=== PATIENT | male | born 1970 | race Caucasian/White ===

== ENCOUNTER 2025-07-02 16:40 | Emergency (ER) | payer SELFPAY ==
[2025-07-02 16:56] VITALS: BP 152/81; PULSE 81; TEMP 36.6; O2SAT 99; BMI 26.5
--- NOTE | 2025-07-02 18:12 | XR_ITS ---
[facility] [place] [id number] Patient Name: DIPESH CORDERO MRN: [id number] date: 1970 Sex: M Assigned Patient Location: ED.MAIN Current Patient Location: ED.MAIN Accession/Order Number: [id number] Exam Date: 07/02/2025 18:30 Report Date: 07/02/2025 19:04 At the request of: DANELLE COLON Procedure: XR lumbar spine 2-3V XR lumbar spine 2-3V 07/02/2025 6:32 PM SIGNS AND SYMPTOMS: ^Lumbar radiculopathy, Low back pain PROTOCOLS: Frontal and lateral radiographs of the lumbar spine COMPARISON: None FINDINGS: The alignment, development and bony structures are normal. There is no fracture or destructive lesion. There is minimal disc height loss with anterior osteophyte formation at L3-L4. There is mild disc height loss at L5-S1. The sacrum and sacroiliac joints are normal. There is a stone in the gallbladder within the right upper quadrant. XR/XR lumbar spine 2-3V IMPRESSION: No fracture or subluxation. Mild degenerative changes are noted in the lumbar spine, greatest at L3-L4. Impression dictated by: Henrik Kulkarni M.D. 07/02/2025 7:04 PM Dictation Location: [place] [address] Electronically authenticated by: [id number] Y Date: 07/02/2025 19:04
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
--- OUTSIDE RECORDS SUMMARY | 2025-07-02 18:12 | XMS_ITS | Clinical Summary ---
Author Organization [facility] Address [address] [facility] [address], [address] [place] [address] Care Team Providers Care Supervisor Correspondence Section Name Role Phone Shelby Dunn APRN, NP Primary Care Provide r Allergies No known active allergies Medications MedicationSigDispense QuantityRefillsLast FilledStart DateEnd DateStatus traMADol (ULTRAM) 50 MG tablet Take 50 mg by mouth every 8 hours as needed for Pain06/12/2025Discontinued (CLEANUP NO RX MSG) predniSONE (DELTASONE) 20 MG tablet Indications:Acute exacerbation of chronic low back pain,Back muscle spasmTake 2 tablets by mouth daily for 5 days 10 tablet Expired cyclobenzaprine (FLEXERIL) 5 MG tablet Indications:Acute exacerbation of chronic low back pain,Back muscle spasmTake 1 tablet by mouth 3 times daily as needed for Muscle spasms 30 tablet Expired Active Problems Patient Care Coordination No te Formatting of this note migh t be different from the original. [facility]: Referred by Shelby Chew CNP ext [phone] Patrick: [phone] Dx: Neck / Back Pain ProblemNoted DateDiagnosed DateChronic low back pain Encounters DateTypeDepartmentCare SfjeLasziawkern54/28/2025 4:50 PM ESTOffice Visit [facility] [address] [facility] [address] [place] [address] Renee Mehta APRN - KALE Acute exacerbation of chronic low back pain (Primary Dx); Back muscle spasmfrom Last 3 Months Family History Medical HistoryRelationNameCommentsOsteoarthritisFatherDiabetesMotherStroke MotherCancerOtherRelationNameStatusCommentsFatherMotherOther Social History Tobacco UseTypesPacks/DayYears UsedDateSmoking Tobacco: Former Tobacco Cessation:Counseling Given: Not Answered Alcohol UseStandard Drinks/WeekCommentsNo0 (1 standard drink = 0.6 oz pure alcohol)Sex and Gender InformationValueDate RecordedSex Assigned at BirthNot on fileLegal JblWtwj1108/25/2012 9:54 AM ESTGender IdentityNot on fileSexual OrientationNot on fileOccupationIndustryJob Start DateJob End DatedisablityNot on fileNot on fileNot on file Last Filed Vital Signs Vital SignReadingTime TakenCommentsBlood Xlkwlyua311/7206/12/2025 5:01 PM EST Dpwhp387006/12/2025 5:01 PM RBZHspxwvdegvj88.2 ??C (97.2 ??F)06/12/2025 5:01 PM ESTRespiratory Luuv413708/18/2014 1:22 PM ESTOxygen Eensdckiov65%06/12/2025 5:01 PM ESTInhaled Oxygen Concentration--Yjupab09.8 kg (189 lb 3.2 oz)06/12/2025 5:01 PM LMODsrgwe198.8 cm (5' 10 )06/17/2015 1:22 PM ESTBody Mass Index27.15 06/17/2015 1:22 PM EST Plan of Treatment Health MaintenanceDue DateLast DoneCommentsDepression Xaekzz6707/15/1981HIV screen 1984Hepatitis C ekajqs5107/15/1987DTaP/Tdap/Td vaccine (1 - Tdap)1988 Hepatitis B vaccine (1 of 3 - 19+ 3-dose series)07/15/19888892Sixvvq20/31/2009 Nlezdodsbse49/31/2014Colorectal Cancer Jgnwxb9607/15/2014FIT/FOBT: Average risk 2014Fecal-DNA (Cologuard): Average risk2014Sigmoidoscopy/CT pfazybnarigi62/31/2014Pneumococcal 50+ years Vaccine (1 of 1 - PCV)2019 Shingles vaccine (1 of 2)2019Flu vaccine (#1)02/13/2025OVID-19 Vaccine ( season)2025Hepatitis A vaccineAged OutNo longer eligible based on patient's age to complete this topicHib vaccineAged OutNo longer eligible based on patient's age to complete this topicMeningococcal (ACWY) vaccineAged OutNo longer eligible based on patient's age to complete this topicMeningococcal B vaccineAged OutNo longer eligible based on patient's age to complete this topicPolio vaccineAged OutNo longer eligible based on patient's age to complete this topic Care Teams Team MemberRelationshipSpecialtyStart DateEnd Date Shelby Dunn, MUSIC COMPOSER - LOG DATA TECHNICIAN [address] [place] [address] PCP - Keggglx55/7/15
--- OUTSIDE RECORDS SUMMARY | 2025-07-02 18:12 | XMS_ITS | Clinical Summary ---
Author Organization [facility] Address [id number] [address] [place] [address] Care Team Providers Care Dental Nurse Name Role Phone No Pcp, No Pcp Primary Care Provider Unavailabl e Allergies No known active allergies Medications MedicationSigDispense QuantityRefillsLast FilledStart DateEnd DateStatus tiZANidine (ZANAFLEX) 4 mg tablet Take 1 tablet (4 mg total) by mouth every 8 (eight) hours as needed for muscle spasms. 10 tablet 5Active lidocaine (LIDODERM) 5 % Indications:Gluteal pain,Lumbar radiculopathyPlace 1 patch on the skin daily. Remove & Discard patch within 12 hours or as directed by 30 patch 5Active Encounters DateTypeDepartmentCare KxewMeywybqcilk84/01/2025 3:06 PM EST - 06/15/2025 3:32 PM [facility] [address] [place] [address] Jose A Land MD Gluteal pain (Primary Dx); Lumbar radiculopathy Discharge Disposition: Home06/15/2025Travelfrom Last 3 Months Social History Tobacco UseTypesPacks/DayYears UsedDateSmoking Tobacco: Every DayCigarettes Smokeless Tobacco: Never Tobacco Cessation:Ready to Q uit: Not Asked; Counseling Given: Not Answered Alcohol UseStandard Drinks/WeekCommentsNot Currently0 (1 standard drink = 0.6 oz pure alcohol)ChildcareAnswerDate ScmcfttbFeirqvagbQguorlz76/12/2019Employment AnswerDate RnrdkrjqXkmzncfamhGvtlmya64/12/2019Hunger ScreeningAnswerDate RecordedWithin the past 12 months we worried whether our food would run out before we got money to buy more.Never True06/15/2025Within the past 12 months the food we bought just didn't last and we didn't have money to get more.Never True06/15/2025Sex and Gender InformationValueDate RecordedSex Assigned at Not on fileLegal OkeBfsq1902/18/2015 11:51 AM EDTGender IdentityNot on fileSexual OrientationNot on file Last Filed Vital Signs Vital SignReadingTime TakenCommentsBlood Sptogfql696/8606/15/2025 3:14 PM EST Lifdt966806/15/2025 3:14 PM DAAMrvrncpbmmf05.8 ??C (98.2 ??F)06/15/2025 3:14 PM ESTRespiratory Gwyh932008/16/2024 3:14 PM ESTOxygen Yuqyixyqar68%06/15/2025 3:14 PM ESTInhaled Oxygen Concentration--Xpxlbv08.4 kg (186 lb)06/15/2025 3:14 PM EST Ayazlh441.3 cm (5' 11 )06/15/2025 3:14 PM ESTBody Mass Index25.9406/15/2025 3:14 PM EST Plan of Treatment Not on file Medical Devices Not on file Insurance Care Teams Team MemberRelationshipSpecialtyStart DateEnd Date No Pcp, No Pcp [facility] [place] [address] PCP - GeneralFamily Fmcsawoq29/1/25
--- NOTE | 2025-07-02 18:17 | ED.GENADUL1 ---
HPI HPI - General Adult General Chief complaint: Extremity Problem, Nontraumatic Stated complaint: PAIN ON RIGHT SIDE FROM BUTTOCKS DOWN LEG Time Seen by Provider: 07/02/25 17:51 Source: patient and family Limitations: no limitations History of Present Illness HPI narrative: Patient is a 54-year-old male that presents to the emergency department with complaints of right buttock pain that travels to the posterior thigh and terminates about mid calf. He has been experiencing this for a few months now. He denies any trauma or falls. He states he recently went to the [place] ER and was given lidocaine patches and muscle relaxers that have not helped much. He did try to use THC as he was in a lot of pain recently. He states that the pain is worsening and is starting to affect his mobility. He denies any saddle anesthesia, bowel or bladder incontinence/retention, or lower extremity numbness/weakness. He is trying to establish with a PCP and has not seen a spinal specialist or neurosurgeon about this. Related Data Previous Rx's ?Medication ?Instructions ?Recorded naproxen 500 mg tablet 500 mg PO BID #30 tabs 07/02/25 prednisone 50 mg tablet 50 mg PO DAILY 5 days #5 tabs 07/02/25 tizanidine 4 mg capsule 4 mg PO Q8H PRN muscle spasticity 07/02/25 #20 caps Allergies Allergy/AdvReac Type Severity Reaction Status Date / Time No Known Drug Allergies Allergy Verified 07/02/25 17:32 Review of Systems ROS Status of ROS 10 or more systems reviewed and unremarkable except as noted in history and below PFSH PFSH Social History Little interest or pleasure in doing things: not at all Feeling down, depressed, or hopeless: not at all Exam Narrative Exam Narrative: General: No distress, age-appropriate Skin: Warm, dry, no pallor. No rash. Head: Normocephalic, atraumatic. Neck: Supple, non-tender. Eye: Pupils are equal, round and EOMI. No scleral icterus. Ears, Nose, Mouth, and Throat: No nasal mucosal hypertrophy. Oral mucosa is moist, no posterior oropharynx erythema, uvula is mid-line Cardiovascular: Regular Rate and Rhythm without murmur, gallop or rub. Respiratory: No accessory muscle use or respiratory distress. Back: No midline thoracic or lumbar vertebral tenderness. Right lumbar paraspinal tenderness, 5/5 strength bilateral lower extremities. Sensation intact bilateral lower extremities with light touch. Positive straight leg raise on the right, negative on the left. Negative clonus bilaterally. Musculoskeletal: Full ROM of all extremities, no calf or popliteal tenderness Neurological: A&O x4. No cranial nerve dysfunction observed. No truncal ataxia. Moves all extremities. Sensation intact. Psychiatric: Cooperative and interactive. Normal mood and affect. Constitutional Vital Signs, click to edit/add: Last Vital Signs Temp 97.9 F 07/02/25 16:56 Pulse 81 07/02/25 16:56 Resp 18 07/02/25 16:56 BP 152/81 H 07/02/25 16:56 Pulse Ox 99 07/02/25 16:56 O2 Del Method Room Air 07/02/25 16:56 Documenting provider has reviewed patient's vital signs: yes Course Vital Signs Vital signs: Vital Signs Temperature 97.9 F 07/02/25 16:56 Pulse Rate 81 07/02/25 16:56 Respiratory Rate 18 07/02/25 16:56 Blood Pressure 152/81 H 07/02/25 16:56 Pulse Oximetry 99 07/02/25 16:56 Oxygen Delivery Method Room Air 07/02/25 16:56 Temperature 97.9 F 07/02/25 16:56 Pulse Rate 81 07/02/25 16:56 Respiratory Rate 18 07/02/25 16:56 Blood Pressure 152/81 H 07/02/25 16:56 Pulse Oximetry 99 07/02/25 16:56 Oxygen Delivery Method Room Air 07/02/25 16:56 Medical Decision Making MDM Narrative Medical decision making narrative: This 54-year-old male presented with chronic, progressive right-sided buttock pain radiating down the posterior thigh to the mid-calf, consistent with lumbar radiculopathy. Given the absence of trauma, fever, saddle anesthesia, bowel or bladder dysfunction, or focal neurologic deficits, there was low clinical suspicion for cauda equina syndrome, spinal cord compression, epidural abscess, or acute fracture. 2V lumbar spine X-rays were obtained and reviewed by myself as well as radiological read and demonstrated no acute osseous abnormality, with only mild degenerative changes greatest at L3?L4. On my read there is an anterior osteophyte at L3-4 and degenerative disc disease most notable at L5-S1. Imaging results and plan discussed with patient and his . The patient was treated symptomatically in the emergency department with IM ketorolac and orphenadrine as well as oral prednisone, resulting in moderate improvement in pain. As there were no emergent findings warranting advanced imaging or inpatient intervention, the patient was deemed appropriate for outpatient management. He was discharged with NSAIDs, a short steroid course, and a muscle relaxant, and advised to follow up with a neurosurgery or event specialist food demonstrator for further evaluation, including consideration of MRI. Strict return precautions were discussed, and the patient verbalized understanding and agreement with the plan. Differential Diagnosis Differential Diagnosis: Lumbar disc herniation, lumbar fracture, piriformis syndrome, degenerative Imaging Data X-ray lumbar spine: Attestation: I have reviewed the pertinent imaging results. Radiologist's impression: ITS Impressions Lumbar Spine X-Ray 07/02/25 18:12 IMPRESSION: No fracture or subluxation. Mild degenerative changes are noted in the lumbar spine, greatest at L3-L4. Impression dictated by: Henrik Kulkarni M.D. 07/02/2025 7:04 PM Dictation [facility] Electronically authenticated by: [id number] Y Date: 07/02/2025 19:04 Discharge Plan Discharge Chief Complaint: Extremity Problem, Nontraumatic Clinical Impression: Lumbar radiculopathy, right Patient Disposition: Home, Self-Care Time of Disposition Decision: 19:13 Condition: Good Mode of Transportation: Private Vehicle Prescriptions / Home Meds: New prednisone 50 mg tablet 50 mg PO DAILY 5 Days Qty: 5 0RF tizanidine 4 mg capsule 4 mg PO Q8H PRN (Reason: muscle spasticity) Qty: 20 0RF naproxen 500 mg tablet 500 mg PO BID Qty: 30 0RF Print Language: Kittitian Instructions: Lumbar Radiculopathy (ED), Lower Back Exercises (ED) Referrals: Physician,Non-Staff, [Primary Care Provider] - 1 week Malka Hurt APRN [Nurse Practitioner, Neurosurgery] - 1-2 weeks Discharge Date/Time: 07/02/25 19:22
[2025-07-02] MEDS: PREDNISONE 20 MG TABLET 50 MG PO (18:28)
[2025-07-02] MEDS: KETOROLAC TROMETHAMINE 30 MG/ML VIAL IM (18:29)
[2025-07-02] MEDS: ORPHENADRINE 60 MG/2 ML VIAL IM (18:29)
== END 2025-07-02 19:22 | disposition home or self-care (01) ==
PROVIDERS: Emergency Provider Emergency Medicine
DX: M54.16 Radiculopathy, lumbar region (principal)
CPT/HCPCS: 72100; 96372; 99284; J1885; J2360; J7512